=== PATIENT | female | born 1985 | race African-American/Black ===

== ENCOUNTER 2024-02-13 02:27 | Emergency (ER) | payer MEDICAID ==
[~2024-02-13] VITALS: Ht 160 cm; Wt 72.6 kg
[2024-02-13] MEDS ORDERED: HYDR500C2 PO (02:52)
[2024-02-13] MEDS ORDERED: QUET100T PO (02:52)
[2024-02-13] MEDS ORDERED: DIPH25CA83 PO (02:52)
[2024-02-13] MEDS ORDERED: FOLI1TAB27 PO (02:52)
[2024-02-13] MEDS ORDERED: HYDR4TAB4 PO (02:52)
[2024-02-13] MEDS ORDERED: ONDA4TAB5 PO (02:52)
[2024-02-13] MEDS ORDERED: QUET50TA PO (02:52)
[2024-02-13] MEDS ORDERED: ALBU8.5H8 IH (02:52)
[2024-02-13] MEDS ORDERED: TRAZ-182 PO (02:52)
[2024-02-13] MEDS ORDERED: HYDROMORPHONE 1 MG/1 ML DISP.SYRIN ONE ×2 (03:19→04:42)
[2024-02-13] MEDS: HYDROMORPHONE 1 MG/1 ML DISP.SYRIN IM ONE ×2 (03:21→04:46)
[2024-02-13] MEDS: diphenhydrAMINE 50 MG/1 ML VIAL IM ONE (03:34)
[2024-02-13] MEDS: ONDANSETRON ODT 4 MG TAB.RAPDIS SL ONE (03:35)
[2024-02-13 03:44] LABS: EOSINOPHILS # (AUTO) 0.4 K/uL (0.0-0.7); EOSINOPHILS % (AUTO) 7.3 % (0.0-7.0); HEMOGLOBIN 9.3 g/dL (10.9-14.3)
[2024-02-13 03:47] LABS: BASOPHILS % (AUTO) 0.7 % (0.0-2.0); HEMATOCRIT 30.1 % (31.2-41.9); LYMPHOCYTES # (AUTO) 2.5 K/uL (0.8-4.8); LYMPHOCYTES % (AUTO) 41.2 % (20.5-51.5); MEAN CORPUSCULAR HEMOGLOBIN 23.8 uug (24.7-32.8); MEAN CORPUSCULAR HGB CONC 31 g/dL (32.3-35.6); MEAN CORPUSCULAR VOLUME 77.4 fL (75.5-95.3); MONOCYTES # (AUTO) 0.3 K/uL (0.1-1.30); MONOCYTES % (AUTO) 5.3 % (0.0-11.0); NEUTROPHILS # (AUTO) 2.7 K/uL (1.8-8.9); NEUTROPHILS % (AUTO) 45.5 % (38.5-71.5); PLATELET COUNT (AUTO) 308 K/uL (179-408); RED BLOOD CELL COUNT(AUTO) 3.89 MIL/uL (3.63-4.92); RED CELL DISTRIBUTION WIDTH 14.9 % (12.3-17.7)
[2024-02-13 03:51] LABS: ALBUMIN 3.5 g/dL (3.4-5.0); BILIRUBIN,TOTAL 0.3 mg/dL (0.2-1.0); CALCIUM 9.1 mg/dL (8.5-10.1); CREATININE 0.9 mg/dL (0.6-1.3); DIFFERENTIAL COMMENT 1; POTASSIUM 4.2 mmol/L (3.5-5.1); TOTAL PROTEIN, SERUM 7.6 g/dL (6.4-8.2)
[2024-02-13 04:05] LABS: RETICULOCYTE COUNT 1.8 % (0.5-2.2)
[2024-02-13] MEDS ORDERED: ONDA4TAB11 PO (04:38)
[2024-02-13 04:47] VITALS: BP 141/74; O2SAT 98
[2024-02-13 05:10] LABS: *BILIRUBIN,URIN NEGATIVE (NEGATIVE); *BLOOD, URINE NEGATIVE (NEGATIVE); *CLARITY,URINE CLEAR (CLEAR); *COLOR,URINE Other (YELLOW); *KETONES,URINE NEGATIVE (NEGATIVE); *PROTEIN,URINE NEGATIVE (NEGATIVE); *UROBILINOGEN,URINE 0.2 E.U./dl (NORMAL); LEUKOCYTE ESTERASE ,URINE NEGATIVE (NEGATIVE); NITRITE, URINE NEGATIVE (NEGATIVE); UGLUCOSE NEGATIVE (NEGATIVE)
[2024-02-13 05:11] LABS: *URINE HCG, QUAL NEGATIVE (NEGATIVE)
== END 2024-02-13 05:38 | disposition home or self-care (01) ==
LOC: ER 05:36
DX: M54.50 Low back pain, unspecified (principal); D57.819 Other sickle-cell disorders with crisis, unspecified; R03.0 Elevated blood-pressure reading, without diagnosis of hypertension; R10.2 Pelvic and perineal pain; R11.0 Nausea; J45.909 Unspecified asthma, uncomplicated; Z98.890 Other specified postprocedural states; Z90.710 Acquired absence of both cervix and uterus; Z79.899 Other long term (current) drug therapy; Z79.1 Long term (current) use of non-steroidal anti-inflammatories (NSAID); Z79.51 Long term (current) use of inhaled steroids; Z88.5 Allergy status to narcotic agent
CPT/HCPCS: 99284; 80053; 81003; 84703; 85025; 36415; 96372 ×2; J1200; J1170 ×2; A4606; A4663; Q0162

== ENCOUNTER 2024-09-19 02:33 | Emergency (ER) | payer SELFPAY ==
[~2024-09-19] VITALS: Ht 160 cm; Wt 69.9 kg
[~2024-09-19 02:33] MED LIST: ALBU8.5H8 IH; DIPH25CA83 PO; FOLI1TAB27 PO; HYDR2TAB4 PO; HYDR4TAB4 PO; HYDR500C2 PO; ONDA4TAB11 PO; ONDA4TAB5 PO; QUET100T PO; QUET50TA PO; TRAZ-182 PO
[2024-09-19] MEDS ORDERED: diphenhydrAMINE 50 MG/1 ML VIAL ONE (03:00)
[2024-09-19] MEDS ORDERED: ONDANSETRON ODT 4 MG TAB.RAPDIS ONE (03:01)
[2024-09-19] MEDS ORDERED: HYDROMORPHONE 2 MG/1 ML DISP.SYRIN ONE (03:01)
[2024-09-19] MEDS ORDERED: HYDROMORPHONE 1 MG/1 ML DISP.SYRIN ONE (03:01)
[2024-09-19] MEDS ORDERED: ONDA4TAB11 PO (03:09)
[2024-09-19] MEDS ORDERED: HYDR-3980 PO (03:09)
[2024-09-19] MEDS: diphenhydrAMINE 50 MG/1 ML VIAL IM ONE (03:13)
[2024-09-19] MEDS: HYDROMORPHONE 1 MG/1 ML DISP.SYRIN IM ONE (03:16)
[2024-09-19] MEDS: ONDANSETRON ODT 4 MG TAB.RAPDIS SL ONE (03:16)
[2024-09-19 03:41] VITALS: BP 129/82; TEMP 97.8; O2SAT 100
== END 2024-09-19 03:42 | disposition home or self-care (01) ==
LOC: ER 02:53
DX: D57.00 Hb-SS disease with crisis, unspecified (principal); M25.551 Pain in right hip; M25.552 Pain in left hip; M54.50 Low back pain, unspecified; G89.4 Chronic pain syndrome; J45.909 Unspecified asthma, uncomplicated; Z79.899 Other long term (current) drug therapy; Z88.5 Allergy status to narcotic agent; Z90.710 Acquired absence of both cervix and uterus
CPT/HCPCS: 99284; 96372; J1171 ×2; J1200; A4606; A4663; Q0162

== ENCOUNTER 2024-11-13 22:03 | Emergency (ER) | payer MEDICAID ==
[~2024-11-13] VITALS: Ht 160 cm; Wt 69.9 kg
[~2024-11-13 22:03] MED LIST changes: +HYDR-3980 PO
[2024-11-13] MEDS ORDERED: ONDANSETRON HCL 4 MG TABLET ONE (22:59)
[2024-11-13] MEDS ORDERED: diphenhydrAMINE 50 MG/1 ML VIAL ONE (22:59)
[2024-11-13] MEDS ORDERED: HYDROMORPHONE 1 MG/1 ML DISP.SYRIN ONE (23:00)
[2024-11-13] MEDS: diphenhydrAMINE 50 MG/1 ML VIAL IM ONE (23:06)
[2024-11-13] MEDS: ONDANSETRON HCL 4 MG TABLET PO ONE (23:06)
[2024-11-13] MEDS: HYDROMORPHONE 1 MG/1 ML DISP.SYRIN IM ONE (23:08)
[2024-11-14] MEDS ORDERED: HYDROMORPHONE 1 MG/1 ML DISP.SYRIN ONE (00:36)
[2024-11-14] MEDS: HYDROMORPHONE 1 MG/1 ML DISP.SYRIN IM ONE (00:47)
[2024-11-14 01:47] VITALS: BP 125/82; TEMP 98; O2SAT 98
== END 2024-11-14 01:37 | disposition home or self-care (01) ==
LOC: ER 22:06
DX: M54.9 Dorsalgia, unspecified (principal); J45.909 Unspecified asthma, uncomplicated; Z79.899 Other long term (current) drug therapy; Z88.5 Allergy status to narcotic agent; Z90.710 Acquired absence of both cervix and uterus
CPT/HCPCS: 99284; 96372 ×2; J1171 ×2; J1200; A4606; A4663; Q0162

== ENCOUNTER 2025-07-14 04:20 | Emergency (ER) | payer SELFPAY ==
[~2025-07-14] VITALS: Ht 160 cm; Wt 72.6 kg
[~2025-07-14 04:20] MED LIST changes: +ONDA-243 PO; -ONDA4TAB11 PO
[2025-07-14 04:23] VITALS: BP 130/91
[2025-07-14] MEDS ORDERED: diphenhydrAMINE 50 MG/1 ML VIAL ONE (04:46)
[2025-07-14] MEDS ORDERED: ONDANSETRON ODT 4 MG TAB.RAPDIS ONE (04:46)
[2025-07-14] MEDS ORDERED: HYDROMORPHONE 2 MG/1 ML DISP.SYRIN ONE ×2 (04:47→05:59)
[2025-07-14] MEDS: HYDROMORPHONE 1 MG/1 ML DISP.SYRIN IM ONE ×2 (04:55→06:03)
[2025-07-14] MEDS: diphenhydrAMINE 50 MG/1 ML VIAL IM ONE (04:55)
[2025-07-14] MEDS: ONDANSETRON ODT 4 MG TAB.RAPDIS SL ONE (04:55)
[2025-07-14 05:04] LABS: CREATININE 0.8 mg/dL (0.6-1.3); SODIUM SERUM 138.0 mmol/L (136-145); UREA NITROGEN, BLOOD 9.0 mg/dL (7-18)
[2025-07-14 05:09] LABS: PLATELET COUNT (AUTO) 254 K/uL (179-408); RED BLOOD CELL COUNT(AUTO) 3.54 MIL/uL (3.63-4.92); RED CELL DISTRIBUTION WIDTH 15.8 % (12.3-17.7); WHITE BLOOD COUNT (AUTO) 6.6 K/uL (3.8-11.8)
[2025-07-14 05:10] LABS: ASPARTATE AMINOTRANSFERASE 23.0 U/L (15-37); LACTATE DEHYDROGENASE 244.0 U/L (81-234); TOTAL PROTEIN, SERUM 7.0 g/dL (6.4-8.2)
[2025-07-14 05:49] LABS: EOSINOPHILS % (MANUAL) 4 % (0-8); LYMPHOCYTES % (MANUAL) 32 % (20-40); MONOCYTES % (MANUAL) 3 % (2-10); NEUTROPHILS % (MANUAL) 61 % (42-75); PLATELET ESTIMATE ADEQUATE
[2025-07-14 06:24] VITALS: BP 121/84; O2SAT 96
== END 2025-07-14 06:20 | disposition home or self-care (01) ==
LOC: ER 04:20
DX: D57.00 Hb-SS disease with crisis, unspecified (principal); F11.20 Opioid dependence, uncomplicated; J45.909 Unspecified asthma, uncomplicated; Z79.899 Other long term (current) drug therapy; Z88.5 Allergy status to narcotic agent; Z90.710 Acquired absence of both cervix and uterus; Z90.81 Acquired absence of spleen
CPT/HCPCS: 99284; 80053; 83615; 85007; 85027; 85044; 36415; 96372 ×2; J1200; J1171 ×2; 70030-TC; A4606; A4663; Q0162

== ENCOUNTER 2025-07-26 17:36 | Emergency (ER) | payer SELFPAY ==
[~2025-07-26] VITALS: Ht 160 cm; Wt 72.6 kg
[2025-07-26] MEDS ORDERED: ONDANSETRON ODT 4 MG TAB.RAPDIS ONE (18:56)
[2025-07-26] MEDS ORDERED: HYDROMORPHONE 1 MG/1 ML DISP.SYRIN ONE (18:56)
[2025-07-26] MEDS ORDERED: diphenhydrAMINE 50 MG/1 ML VIAL ONE (18:56)
[2025-07-26] MEDS ORDERED: HYDROMORPHONE 2 MG/1 ML DISP.SYRIN ONE (18:56)
[2025-07-26] MEDS: ONDANSETRON ODT 4 MG TAB.RAPDIS SL ONE (19:00)
[2025-07-26] MEDS: diphenhydrAMINE 50 MG/1 ML VIAL IM ONE (19:00)
[2025-07-26] MEDS: HYDROMORPHONE 1 MG/1 ML DISP.SYRIN IM ONE (19:01)
[2025-07-26 19:46] VITALS: BP 148/78
[2025-07-26 20:05] VITALS: BP 145/77; TEMP 98.2; O2SAT 98
== END 2025-07-26 20:29 | disposition home or self-care (01) ==
LOC: ER 17:48
DX: D57.00 Hb-SS disease with crisis, unspecified (principal)
CPT/HCPCS: 99284; 96372 ×2; J1200; J1171 ×2; A4606; A4663; Q0162